=== PATIENT | female | born 1965 | race Caucasian/White ===

== ENCOUNTER 2021-06-15 21:24 | Emergency (ER) | payer OTHER ==
[2021-06-15] MEDS ORDERED: Boostrix 0.5 ML (Tdap) VIAL ONE (22:16)
[2021-06-15] MEDS ORDERED: Acetaminophen/Codeine 30-300mg Tablet ONE (22:48)
== END 2021-06-15 23:00 | disposition home or self-care (01) ==
LOC: ERS 21:24
DX: S71.132A Puncture wound without foreign body, left thigh, initial encounter (principal); W26.9XXA Contact with unspecified sharp object(s), initial encounter
CPT/HCPCS: 90471; 90715

== ENCOUNTER 2021-08-26 12:44 | Outpatient (CLI) | payer OTHER | END 2021-08-26 12:45 | disposition home or self-care (01) | LOC: ULT 12:44 | PROVIDERS: ATTEND Nurse Practitioner Family | DX: L08.9 Local infection of the skin and subcutaneous tissue, unspecified (principal); I83.813 Varicose veins of bilateral lower extremities with pain ==

== ENCOUNTER 2021-09-05 22:29 | Emergency (ER) | payer OTHER ==
[2021-09-05] MEDS ORDERED: Ketorolac Tromethamine 30 MG/ML VIAL ONE (22:36)
[2021-09-05] MEDS ORDERED: Acetaminophen 500 MG TAB ONE (22:36)
== END 2021-09-05 23:15 | disposition home or self-care (01) ==
LOC: ERS 22:29
DX: L03.115 Cellulitis of right lower limb (principal)
CPT/HCPCS: 96372; J1885